=== PATIENT | male | born 1985 | race Caucasian/White ===

== ENCOUNTER 2019-11-18 15:54 | Emergency (ER) | payer BC, SELFPAY ==
[2019-11-18 16:24] VITALS: BP 150/90; PULSE 96; RESP 18; TEMP 36.9; O2SAT 100; BMI 41.5
--- NOTE | 2019-11-18 16:33 | CT_ITS ---
Procedure: CT ABDOMEN PELVIS WO CON Patient Age:33Y CLINICAL INDICATION: ABD PAIN, N/D No oral nor COMPARISON: No exams were available for comparison TECHNIQUE: No oral nor IV contrast utilized Axial images obtained with sagittal and coronal reformats. All CT scans at the facility use one or more dose reduction, viz: automated exposure control, ma/kV adjustment per patient size (including targeted exams where dose is matched to indication, i.e. head), or iterative reconstruction technique. FINDINGS: Lower thorax: No acute finding. 11 mm calcified granuloma left lung base. Associated calcified left hilar node cluster spanning 2 cm inferior left aliza ABDOMEN: The the lack of oral and IV contrast decrease sensitivity. Liver: Mild diffuse fatty changes of liver but no focal lesions evident on this noncontrast study . No biliary ductal dilatation. Common duct appears normal Gallbladder: Upper normal sized on 9.6 cm in length no radio opaque stones. Suspect there is sludge and debris. If nausea persist consider gallbladder ultrasound follow-up. Pancreas: . No prominent findings but slight wispy appearance inferior pancreas of I doubt of significance but it may be worth checking amylase particularly of upper abdominal symptoms.. Spleen: unremarkable Adrenals: unremarkable Kidneys/ureters: unremarkable no urinary tract calculi nor obstruction PELVIS: Reproductive: unremarkable modest sized prostate Bladder: Upper normal wall thickness urinary bladder.. Consider correlation with urinalysis if any symptoms here.. No obvious stones or masses. Appendix: Unremarkable. No distention or periappendiceal phlegmonous change. GI tract ========= Stomach satisfactory. Moderate food and fluid within stomach. Small bowel. Unremarkable but no dilatation no obstruction.. Terminal ileum unremarkable. Appendix. Normal. Well visualized. The Large bowel. Air-fluid levels with of liquid stool throughout the right colon. Nonspecific could reflect developing diarrhea possibly. A number minimal stool at the rectosigmoid and left colon. At the rectosigmoid junction there is a area of narrowing and upper normal wall thickness axial image 114 -115. Suspect more likely reflect peristalsis with lack of distension at this segment-most likely. However if there should be heme-positive stools or or persistent GI symptoms want to consider colonoscopy to further evaluate. Peritoneum: No abnormal fluid collections. No obvious inflammatory changes. No free air. Lymph nodes: . there are slight increased number of small scattered mesenteric lymph nodes. Nonspecific but can be seen with some underlying inflammation the. No significant sophia enlargement nor adenopathy elsewhere to raise concern otherwise Vasculature: No evidence of abdominal aortic aneurysm... Bones: No acute fracture IMPRESSION: No prominent findings.. Minimal liquid stool right colon could reflect developing diarrhea and enteritis No bowel dilatation or obstruction.No wall thickening . Appendix normal Other minor observations: Question subtle wispy appearance just inferior to head of pancreas. Likely normal but you may want to check amylase. The Scattered very small mesenteric lymph nodes-nonspecific. No prominent nodes or adenopathy Segment of upper normal wall thickness at rectosigmoid junction most likely reflects an area of peristalsis with lack of distension. However if blood in stool consider further evaluation Gallbladder: No discrete stones by CT. Would question some minimal sludge debris on CT. Fatty changes liver. Dictated by: Denis Bond MD 11/18/2019 17:46 Electronically signed
[2019-11-18 17:10] LABS: Appearance,Urine CLEAR (Clear); Bilirubin,Urine Negative (Negative); Blood, Urine 1+ (Negative); Color,Urine YELLOW (Yellow); Glucose,Urine (UA) Negative (Negative); Ketones,Urine Negative (Negative); Leukocyte Esterase,Urine Negative (Negative); Microscopic, Urine URINE MICROSCOPIC (MICROSCOPIC); Nitrate,Urine Negative (Negative); PH,Urine 5.5 (5.0-8.5); Protein,Urine Negative (Negative); Specific Gravity, Urine >= 1.030 (1.005-1.030)
[2019-11-18 17:35] LABS: Squamous Epithelial Cell,Urine Occasional #/hpf (0-5)
--- NOTE | 2019-11-18 18:19 | HMH.EDABDPAI ---
ED Disposition Clinical Impression: Constipation, Abdominal pain Disposition: Home, Self-Care Condition on Discharge: Good Instructions: DI for Acute Abdomen Additional Instructions: Please follow-up with your primary care for further management. Referrals: Provider,Referral, [Primary Care Provider] - - Critical Care Critical Care Time: No Attestation: On 11/18/19, the high probability of a clinically significant, sudden or life threatening deterioration of the following system(s) required my full and direct attention, intervention and personal management. The time I documented below is in addition to time spent performing reported procedures but includes the following listed in this critical care notation. Medical Decision Making - Medical Records Medical records reviewed: Yes: I reviewed the patient's medical records. - Candido Inquiry Pt receiving controlled substance: No Vital Signs: 11/18/19 16:24 Temperature 98.4 F Temperature Source Oral Pulse Rate [Left Radial] 96 H Respiratory Rate 18 Blood Pressure [Left Arm] 150/90 H Blood Pressure Mean [Left Arm] 110 Blood Pressure Source [Left Arm] Automatic Cuff Blood Pressure Position [Left Arm] Sitting 02 Sat by Pulse Oximetry 100 Oxygen Delivery Method Room Air - Lab Data Lab results reviewed: Yes: I reviewed the patient's lab results. Lab Results 11/18/19 16:24: Urine Color Yellow, Urine Appearance Clear, Urine pH 5.5, Ur Specific [place] >= 1.030, Urine Protein Negative, Urine Glucose (UA) Negative, Urine Ketones Negative, Urine Blood 1+, Urine Nitrate Negative, Urine Bilirubin Negative, Urine Urobilinogen 1.0, Ur Leukocyte Esterase Negative, Urine RBC 3-5, Urine WBC None, Ur Squamous Epith Cells Occasional, Urine Bacteria None - CT Data CT Scan: Abdomen, Pelvis Time Received: 16:[address] Reviewed: Yes: I have viewed the radiologist's interpretation Preliminary Findings: Normal/NAD Abdominal Pain HPI - General Chief Complaint: Abdominal Pain Stated Complaint: V&D. Abd pain Time Seen by Provider: 11/18/19 18:19 Mode of Arrival: Ambulatory Source of Information: Patient Limitations: No Limitations Description of Symptoms (Recalled from ER Triage Doc. by RN): PT C/O MID/UPPER ABD PAIN SINCE YESTERDAY ALONG WITH N/D. PT DENIES VOMITING, DIFFICULTY/PAINFUL URINATION. - History of Present Illness HPI narrative: 33-year-old gentleman comes in complaining of some epigastric pain radiating to the left upper quadrant. He states the pain started yesterday around noon after a meal. He describes the pain almost like a burning sensation/crampy sensation. Patient denies any nausea or vomiting. Patient denies any recent fever shakes or chills. Patient does rate his pain 4 out of 10 and describes drinking warm fluids alleviates the pain. Otherwise no other complaints. - Related Data Previous Rx's Medication Instructions Recorded Azithromycin [Z-Jose Ramon 250mg Tab*] 250 mg PO UD DOSE PK #6 tab 07/16/19 Brompheniramine/Pseudoephed/Dm 5 ml PO Q6HP PRN #240 syrup 07/16/19 [Bromfed Dm Cough Syrup] predniSONE [Prednisone 20mg 20 mg PO BID 4 Days #8 tab 07/16/19 Tab] Amoxicillin/Potassium Clav 1 tab PO Q12H 10 Days #20 tab 09/30/19 [Augmentin 875-125 Tablet] predniSONE [Deltasone 10mg tablet] 10 mg PO BID 3 Days #6 tab 09/30/19 Allergies Allergy/AdvReac Type Severity Reaction Status Date / Time No Known Allergies Allergy Verified 07/16/19 18:52 [facility] History - Hepatitis A Screen Drug use history?: No High risk sexual behaviors?: No History of sexually transmitted infection?: No Currently employed?: No Childcare worker?: No Do you have indoor plumbing?: Yes Do you have electricity?: Yes Attestation statement:: This patient has been screened for Hepatitis A risk factors. I have reviewed the patient's past medical history: Yes Medical History: Denies:: Diabetes Mellitus Type 1, Diabetes Mellitus Type 2 - Social H
[2019-11-18 18:28] VITALS: BP 131/86; PULSE 87; RESP 18; TEMP 36.8; O2SAT 98
== END 2019-11-18 18:30 | disposition home or self-care (01) ==
PROVIDERS: Emergency Provider Family Medicine
DX: K59.00 Constipation, unspecified (principal); R10.12 Left upper quadrant pain; Z79.899 Other long term (current) drug therapy
CPT/HCPCS: 74176; 81001; 99282

== ENCOUNTER → 2020-01-31 09:27 | Outpatient (CLI) | payer OTHER, BC, SELFPAY ==
--- NOTE | 2020-01-31 09:29 | XR_ITS ---
PROCEDURE: XR FOOT WT BEARING LT 3V CLINICAL INDICATION: pain COMPARISON: XR ANKLE WT BEARING LT MIN 3V from 01/31/2020 FINDINGS: No fracture or dislocation. No lytic or blastic change. There is normal mineralization. The joint spaces are well-preserved. No significant degenerative/arthritic changes. No erosive changes evident. Other findings:None. IMPRESSION: No acute findings. Dictated by: Carl Nails MD 01/31/2020 15:44 Electronically signed by Carl Nails MD in [place] 01/31/2020 15:44
--- NOTE | 2020-01-31 09:29 | XR_ITS ---
PROCEDURE: XR ANKLE WT BEARING RT MIN 3V CLINICAL INDICATION: pain COMPARISON: XR FOOT WT BEARING RT 3V from 01/31/2020 FINDINGS: No fracture or dislocation. No lytic or blastic change. There is normal mineralization. The joint spaces are well-preserved. No significant degenerative/arthritic changes. No erosive changes evident. Other findings:None. IMPRESSION: No acute findings. Dictated by: Carl Nails MD 01/31/2020 15:43 Electronically signed by Carl Nails MD in [place] 01/31/2020 15:43
== END ==
PROVIDERS: Visit Provider Podiatrist
DX: M25.572 Pain in left ankle and joints of left foot (principal); M25.571 Pain in right ankle and joints of right foot
CPT/HCPCS: 73610; 73630

== ENCOUNTER → 2020-02-19 13:10 | Outpatient (CLI) | payer OTHER, BC, SELFPAY ==
[2020-02-19 13:48] LABS: Basophils # 0.1 K/mm3 (0-0.2); Eosinophils # 0.2 K/mm3 (0.0-0.4); Hemoglobin 15.1 g/dL (14.1-18.0); Lymphocytes # 1.8 K/mm3 (0.7-4.5); Lymphocytes % 27.9 % (10-50); Mean Corpuscular HGB Conc 34.3 g/dL (31.8-35.4); Mean Corpuscular Hemoglobin 28.7 pg (27.0-31.2); Mean Corpuscular Volume 83.6 fl (80-94); Mean Platelet Volume 7.3 fl (7.4-10.4); Monocytes # 0.3 K/mm3 (0.1-1.0); Monocytes % 4.3 % (1.7-9.3); Neutrophils # 4.2 K/mm3 (1.8-7.8); Neutrophils % 63.8 % (37.0-80.0); Platelet Count 207 K/mm3 (142-424); Red Blood Count 5.26 M/mm3 (4.60-6.20); White Blood Count 6.6 K/mm3 (4.8-10.8)
[2020-02-19 14:17] LABS: Alanine Aminotransferase 45 U/L (12-78); Albumin Level 4.3 g/dl (3.5-5.0); Albumin/Globulin Ratio 1.7 (1.1-1.8); Alkaline Phosphatase 59 U/L (38-126); Anion Gap 11.5 mEq/L (5-15); Aspartate Amino Transferase 28 U/L (17-59); Bilirubin,Total 0.5 mg/dl (0.2-1.3); Blood Urea Nitrogen 16 mg/dl (9-20); Carbon Dioxide 29 mmol/L (22.0-30.0); Chloride 104 mmol/L (98-107); Estimated Glomerular Filt Rate 77 ml/min (>60); GFR (African American) 93 ML/MIN (>60); Globulin 2.6 g/dL (1.3-3.2); Glucose 97 mg/dl (74-100); Potassium 4.5 mmoL/L (3.5-5.1); Sodium 140 mmol/L (136-145); Total Protein,Serum 6.9 g/dl (6.3-8.2)
[2020-02-19 14:46] LABS: Thyroid Stimulating Hormone 0.73 uIU/mL (0.465-4.68)
[2020-02-20 13:32] LABS: Vitamin B12 348 pg/mL (232-1245)
[2020-02-21 09:39] LABS: Folate 9.9 ng/mL (>3.0)
[2020-02-26 05:38] LABS: 1,25 Dihydroxy Vitamin D 49 pg/mL (.); 1,25-Dihydroxy, Vitamin D-2 <10 pg/mL (.); 1,25-Dihydroxy, Vitamin D-3 49 pg/mL (.)
[2020-04-03 10:34] LABS: Cotinine 174.9; Nicotine 10.8
== END ==
PROVIDERS: Visit Provider Podiatrist
DX: M25.471 Effusion, right ankle (principal); M25.571 Pain in right ankle and joints of right foot; S99.911D Unspecified injury of right ankle, subsequent encounter
CPT/HCPCS: 36415; 80053; 80323; 82607; 82652; 82746; 84443; 85025

== ENCOUNTER → 2020-02-21 09:39 | Outpatient (CLI) | payer OTHER, BC, SELFPAY ==
--- NOTE | 2020-02-21 10:08 | MR_ITS ---
PROCEDURE: MR ANKLE RT WO/W CON CLINICAL INDICATION: evaluate for right tarsal coalition ATFL sprain, tarsal coalition, posterior tibial tendon dysfunction Trion and heard a pop. Lateral sided ankle pain. Swelling entire ankle. No injury. Prior X-Ray 01-31-20 COMPARISON: XR FOOT WT BEARING RT 3V from 01/31/2020 TECHNIQUE: Routine multiplanar multi echo sequences are performed without and with gadolinium enhancement. FINDINGS: No bone marrow edema apparent. No obvious fracture or dislocation. The inferior aspect of the tibiofibular syndesmosis and tibiofibular ligaments appear intact. There is increased T2 signal with thinning of the ATFL suggesting sprain or partial tear. The PT FL appears intact. The fibers of the deltoid ligament are sparse which may be due to sprain or partial tear. No evidence of tarsal coalition. There is increased T2 signal involving the peroneus brevis on the axial post enhanced images. This is at the level of the anterior aspect of the calcaneus and could represent a partial split tear or an area tendinopathy/tendinosis. This is best demonstrated on series 14 image twenty through 23. A complete tear is not felt to be present. The peroneus longus, Achilles tendon, posterior tibialis, flexor hallucis longus and flexor digitorum longus tendons appear intact as do the anterior extensor tendons. No abnormal fluid collections. IMPRESSION: 1. Thinning of the ATFL with increased T2 signal suggesting sprain or partial tear 2. Incomplete split tear versus tendinopathy/tendinosis of the peroneus brevis tendon 3. No obvious tarsal coalition. Dictated by: Carl Nails MD 02/23/2020 09:45 Electronically signed by Carl Nails MD in [place] 02/23/2020 09:45
== END ==
PROVIDERS: Visit Provider Podiatrist
DX: M25.471 Effusion, right ankle (principal); S93.401A Sprain of unspecified ligament of right ankle, initial encounter
CPT/HCPCS: 73723; A9576

== ENCOUNTER → 2020-05-05 13:00 | Outpatient (CLI) | payer OTHER, SELFPAY ==
--- NOTE | 2020-05-05 13:30 | ECG_ITS ---
APPROVED REPORT Exam: Resting ECG HR:64 bpm ECG Measurements Heart Rate [address] 172 P 46 QRSd 100 QRS -19 QT 406 T 38 QTc 418 Conclusion Normal sinus rhythm with sinus arrhythmia Normal ECG Electronically signed by : Addy Perla, 05/06/2020 06:40:30
[2020-05-05 14:01] LABS: Basophils % 0.6 % (0.1-2.0); Eosinophils # 0.2 K/mm3 (0.0-0.4); Eosinophils % 3.3 % (0.1-12.0); Hematocrit 45.9 % (42.0-52.0); Hemoglobin 15.2 g/dL (14.1-18.0); Lymphocytes % 28.4 % (10-50); Mean Corpuscular HGB Conc 33.2 g/dL (31.8-35.4); Mean Corpuscular Hemoglobin 28.3 pg (27.0-31.2); Mean Corpuscular Volume 85.2 fl (80-94); Mean Platelet Volume 7.5 fl (7.4-10.4); Monocytes # 0.5 K/mm3 (0.1-1.0); Monocytes % 7.1 % (1.7-9.3); Neutrophils # 4.2 K/mm3 (1.8-7.8); Neutrophils % 60.7 % (37.0-80.0); Platelet Count 232 K/mm3 (142-424); Red Blood Count 5.39 M/mm3 (4.60-6.20); Red Cell Distribution Width 13.8 % (11.5-17.5)
[2020-05-05 14:39] LABS: Alanine Aminotransferase 49 U/L (12-78); Albumin Level 4.6 g/dl (3.5-5.0); Albumin/Globulin Ratio 1.7 (1.1-1.8); Alkaline Phosphatase 65 U/L (38-126); Anion Gap 13.6 mEq/L (5-15); Aspartate Amino Transferase 34 U/L (17-59); Bilirubin,Total 0.7 mg/dl (0.2-1.3); Blood Urea Nitrogen 19 mg/dl (9-20); Calcium 9.6 mg/dl (8.4-10.2); Carbon Dioxide 28 mmol/L (22.0-30.0); Chloride 104 mmol/L (98-107); Estimated Glomerular Filt Rate 86 ml/min (>60); GFR (African American) 103 ML/MIN (>60); Globulin 2.7 g/dL (1.3-3.2); Glucose 97 mg/dl (74-100); Potassium 4.6 mmoL/L (3.5-5.1); Sodium 141 mmol/L (136-145); Total Protein,Serum 7.3 g/dl (6.3-8.2)
[2020-05-05 16:38] LABS: Coronavirus 19 IgG Antibody Negative (Negative); Coronavirus 19 IgM Antibody Negative (Negative)
== END ==
PROVIDERS: Visit Provider Podiatrist
DX: Z01.89 Encounter for other specified special examinations (principal); S93.491D Sprain of other ligament of right ankle, subsequent encounter; S96.911D Strain of unspecified muscle and tendon at ankle and foot level, right foot, subsequent encounter; S86.311D Strain of muscle(s) and tendon(s) of peroneal muscle group at lower leg level, right leg, subsequent encounter
CPT/HCPCS: 36415; 80053; 85025; 86328; 93005

== ENCOUNTER 2020-05-07 06:14 | Day surgery (SDC) | payer OTHER, SELFPAY ==
[2020-05-05 15:38] VITALS: BMI 41.5
[2020-05-07] VITALS (14 sets, daily range): BP systolic 111–177; BP diastolic 66–96; PULSE 66–91; RESP 15–24; TEMP 36.1–43; O2SAT 90–100
--- NOTE | 2020-05-07 07:03 | HMH.OPNOTE ---
Date of procedure: 05/07/20 Pre-op Diagnosis:: 1. Right peroneal tendon tear x2 (brevis, longus) 2. Right ankle synovitis 3. Right ankle sprain Post-op Diagnosis:: Same Procedure performed:: 1. Right peroneal tendon debridement and repair x2 (brevis, longus) 2. Right ankle synovectomy 3. Application of amniotic tissue graft 4. Application of posterior splint Surgeon:: Chen Pearce DPM MANAGER OF APPLICATION DEVELOPMENT:: Randy Urrutia Anesthesia: GETA Estimated blood loss (mL): 50 Clinical Note:: Patient suffered right ankle injury after stepping wrong out of an ambulance over 2 months ago. Patient has been treating conservatively with modification of activity, RICE protocol, immobilization, NSAID, off work and continues to have pain and symptoms. MRI right ankle 02/21/20 reviewed and discussed with the patient. We discussed continued conservative versus surgical treatment. Indications: X-rays 3 views weightbearing bilateral foot and ankle taken 01/31/2020, (-) for acute fracture or dislocation. Soft tissue swelling noted to right foot and ankle. 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 Patient has a history of an ankle fracture at 10 years old with foot pain since then. Indications: Modification of shoe gear, modification of activity, [id number] bracing, immobilization in boot, ice, elevation, NSAIDs, stretching. Patient unable to tolerate formal physical therapy and unable to work secondary to worsening pain rated 10/10. He is off work and continues to have symptoms limiting activities of daily life and working. After a long discussion with the patient in regards to the conservative versus surgical treatment for the tendon tear/deformity, the patient has elected to proceed with surgery because they have failed conservative treatment and continue to have pain and worsening symptoms affecting daily activities. Workers comp did not approve surgery for next week. Given some of the conditions are pre-existing they have approved the acute peroneal tendon repair only. I explained this to the patient who understands any remaining surgery would not be covered by Worker's Comp. and we will need to stage other procedures in a different surgery. Patient verbalized understanding. The patient has been instructed on the planned procedure, all risk versus benefits of the procedure discussed. These include but are not limited to: bleeding, infection, nerve and blood vessel damage, need for further surgery, delay in healing of soft tissue or bone, tendon re-rupture, failure of bones to heal, non-union, mal-union, failure of the implant, prolonged pain and recovery, CRPS/RSD, DVT and anesthetic complications. No guarantees were given. All questions fully answered. The patient verbalized understanding and agreed to proceed with surgery. Written consent was obtained. Necessary labs and pre-op testing ordered: CBC, CMP, EKG, covid. Contacted Dr. Roberto's office to set him up as a new patient for evaluation of HTN. Medical clearance per Ranjan Martinez on 05/06/20. Patient has crutches. Recommend RKS. e-Rx for Percocet 7.5mg # 42, Zofran 4mg # 30, Motrin 800mg #60 given. Operative findings:: Right ankle had fibrotic scar tissue and synovitis noted. The area was a low-lying peroneal brevis muscle belly with a split tear of the brevis tendon. There was flattening of the brevis inferior to the distal fibula lateral malleolus. The peroneal longus had synovitis and a longitudinal tear about 3 cm long. Negative anterior ankle drawer. Due to the patient's varicose veins, venous tourniquet and high blood pressure this case took 30 minutes longer than normal. The patient had very large body habitus with subcutaneous tissue which also contributed to slower dissection. The flatfoot deformity and chronic instability feelings w
--- NOTE | 2020-05-07 08:04 | P.PN_ITS ---
[facility] Anesthesia Checklist - Patient Identification Patient Identification: Arm Band, Verbal (Name & ) - Structural Data Admitted From: Home Planned Operative Procedure/s: Right foot peroneal tendon repair Consent for Planned Operative Procedure(s) Verified: Yes Verified Documents: Surgical Consent, History and Physical - NPO Status Verified Time NPO: 21:00 - Chart Verification Results Verified: CBC, BMP - Additional verifications Anesthesia Reactions: No Hx Blood Transfusions: No Blood Transfusion Reaction: No - Airway Assessment C-Spine Mobility Assessed: Yes (MP 3, Campos, thick neck, full neck ROM) TMJ Mobility Assessed: Yes Dentition: Good Dentition - Neurological Assessment Level of Consciousness: Awake, Alert, Appropriate, Follows Commands Hx Seizures: No Numbness or tingling in extremities: No - Anesthesia Plan Anesthesia Risk discussed: Yes Anesthesia Plan: Verified ASA Class: III Anesthesia Type: General w/block [facility] History I have reviewed the patient's past medical history: Yes Medical History: Reports:: Hypertension Denies:: Cancer, Diabetes Mellitus Type 1, Diabetes Mellitus Type 2, Internal Pacemaker, MRSA, Seizures *Have you ever received a pneumonia vaccine?: No *Have you received a flu vaccine this season?: No Other Medical History: Denies: Blood Transfusion Reaction Comment:: morbid obesity Anesthesia experience/problems:: No prior complications Other Surgeries: Yes: No Previous Surgery, Other. No: Pacemaker Amputation: No Fractures: No - *Social History Last grade of school completed: High school graduate Smoking Status: Never smoker Tobacco Type: smokeless tobacco # Packs/Day (cigarettes): 0 Alcohol Intake: never Substance Use Type: denies use *Occupational Status:: employed Housing: house Household Members: spouse *Travel in the last 8 weeks: None Family Hx:: Cancer, Stroke, Heart Attack
--- NOTE | 2020-05-07 09:13 | P.PN_ITS ---
[facility] Anesthesia Record Part I Intake, IV Amount: 1,000 Estimated blood loss (mL): 20 Urine output (mL): 0 Blood Pressure: 111/74 SaO2: 92 Pulse Rate: 73 Respiratory Rate: 16 Temperature: 98.6 F Patient is:: Drowsy, Stable Stable to PACU at:: 09:10
--- NOTE | 2020-05-07 09:15 | XR_ITS ---
PROCEDURE: XR ANKLE RT MIN 3V CLINICAL INDICATION: Post op R ankle COMPARISON: CR XR ANKLE WT BEARING RT MIN 3V from 01/31/2020 FINDINGS: Posterior splint is in place. No fracture or dislocation. Good alignment. IMPRESSION: Posterior splint in place otherwise negative Dictated by: Carl Nails MD 05/07/2020 16:30 Carl Nails MD in [place] 05/07/2020 16:30
--- NOTE | 2020-05-07 12:56 | SUR.OPER ---
late entry: [id number]-family updated
--- NOTE | 2020-05-07 13:41 | P.PN_ITS ---
[facility] Anesthesia Record Part II Discharge Time: 09:40 Destination: Surgical Day Care (OP Surgery) PACU nurse assessment reviewed?: Yes Patient Condition:: Good Anesthesia Complications:: None Swallowing reflex intact?: Yes Cyanosis?: No Blood Pressure: 146/72 Pulse Rate: 71 Temperature: 98.4 F Mental Status: Alert & Oriented Pain level:: 0 Nausea and/or vomitting:: None Intake, IV Amount: 0 (NM)
== END 2020-05-07 10:45 | disposition home or self-care (01) ==
LOC: OR 06:15
PROVIDERS: PCP Emergency Medicine; Visit Provider Podiatrist
PROC: (CPT 27625; principal; 2020-05-07 07:30)
DX: S93.491A Sprain of other ligament of right ankle, initial encounter (principal); S86.311A Strain of muscle(s) and tendon(s) of peroneal muscle group at lower leg level, right leg, initial encounter; S96.811A Strain of other specified muscles and tendons at ankle and foot level, right foot, initial encounter; X58.XXXA Exposure to other specified factors, initial encounter; Y92.89 Other specified places as the place of occurrence of the external cause
CPT/HCPCS: 27625; 27658; C5271; 73610; 96374; C1762; J2405; Q4211

== ENCOUNTER 2020-07-31 09:00 | Outpatient (RCR) | payer OTHER, SELFPAY ==
--- NOTE | 2020-07-08 15:06 | HMH.PTOPEV ---
PT Outpatient Evaluation Rehab PT Outpatient Evaluation Start: 07/08/20 14:24 Freq: Status: Active Protocol: Document 07/08/20 14:24 KIRILL (Rec: 07/08/20 15:06 KIRILL [id number]) Electronically Signed By Clemente Villegas, PT 07/08/20 14:24 Outpatient Therapy Subjective History Subjective History Pt presents s/p R ankle peroneal tendon repair on 05/07. Pt reports initial injury occured while stepping off truck at work on 01/09/20, ' felt pop, and it just didn't get better'. Pt reports very little post-op pain in R ankle currently, however, reports swelling, stiffnes, and weakness. Chief Complaint Pain,Stiff,Swelling,Weakness Symptom Type Ache,Dull Symptoms Relieved By Rest/Positioning,Ice Symptoms Aggravated By Physical Activity Prior Functional Limitations Standing,Walking,Stairs Current Functional Limitations Standing,Walking,Stairs Symptom Description Constant but Variable Level of pain today (0-10) 3 Pain scale - at its best (0-10) 3 Pain scale - at its worst (0-10) 3 Ankle/Foot Eval Gait Observation General Gait Pattern Observation Antalgic Gait,Decrease Weight Bear (R),Decrease Stride Lngth (R) Palpation Tenderness right Ankle/Foot Palpation Findings Tenderness Ankle/Foot Palpation Overall Comment 0-1/4 peroneal insertion ROM Ankle/Foot Dorsiflexion w/Knee Extended 0 Active Range Motion (degrees) Ankle/Foot Plantar Flexion Active Range 0-40 of Motion (degrees) Ankle/Foot Eversion Active Range of 0-5 Motion (degrees) Ankle/Foot Inversion Active Range of 0-20 Motion (degrees) MMT Ankle Dorsiflexion Strength Grade 4- Good- Ankle Plantarflexion Strength Grade 4 Good Foot Eversion Strength Grade 4- Good- Foot Inversion Strength Grade 4- Good- Outpatient Therapy Assessment Impairments Problems/Impairmments Palpation Tenderness,Impaired Range of Motion,Impaired Strength,Impaired Gait Pattern ,Impaired Walking,Impaired Standing,Impaired Stair Climbing,Impaired Work Activities,Increased Edema, Lymphedema Present,Subjective C/O Pain,Impaired Self Care/ Self Management Prognosis Rehab Potential Good Clinical
== END 2020-07-31 09:05 | disposition home or self-care (01) ==
LOC: PT 09:00
PROVIDERS: Visit Provider Podiatrist
DX: M25.571 Pain in right ankle and joints of right foot; M25.471 Effusion, right ankle; S93.401A Sprain of unspecified ligament of right ankle, initial encounter
CPT/HCPCS: 97010; 97014; 97016; 97110; 97112; 97140; 97163; 97760; G0283

== ENCOUNTER 2020-08-09 14:38 | Emergency (ER) | payer BC, SELFPAY ==
[2020-08-09 15:10] VITALS: BP 142/92; PULSE 84; RESP 19; TEMP 37.1; O2SAT 99; BMI 38.2
--- NOTE | 2020-08-09 15:45 | HMH.EDUTC ---
[facility] [place]ression: Encounter for laboratory testing for COVID-19 virus Disposition: Home, Self-Care Condition on Discharge: Good Instructions: DI for COVID-19 (Suspected or Confirmed ), COVID-19: Testing and Tracing, Preventing the Spread of Coronavirus Discharge Instructions Additional Instructions: *Monitor Temp, Over the counter Motrin or Tylenol as directed/as needed Tylenol every 4 hours and Motrin every 6 hours (as long as your family doctor has told you that you can take it) for fever or pain. and straight to ER if unable to lower temp less than 101.0 after medication given *Warm salt water gargles may help to soothe the throat *Throat Lozenges *Warm fluids like tea with honey may help to soothe the throat *Sleep elevated *Humidifier/Vaporizer Follow up IMMEDIATELY for new or worsening symptoms or no Noticeable improvement over the next 48-72 hours. 911 for difficulty breathing or swallowing You were tested for today for COVID19 your test result should be back in the next 24-48 hours, you may call to the [facility] to see if your test results are back in the next 48 hours [phone] [facility] hours are 9am-9pm You was given a handout with instructions for Self Quarantine and Self isolation for while you wait on test results and what to do if they are positive If you are positive the Health Dept will be contacting you also Referrals: Jaya Roberto MD [Primary Care Provider] - As needed Forms: Work/School Release Time of Disposition: 15:48 Medical Decision Making - Candido Inquiry Pt receiving controlled substance: No Candido was queried for this patient: No Vital Signs: 08/09/20 15:10 Temperature 98.7 F Temperature Source Oral Pulse Rate [Right Brachial] 84 Respiratory Rate 19 Blood Pressure [Right Arm] 142/92 H Blood Pressure Mean [Right Arm] 108 Blood Pressure Source [Right Arm] Automatic Cuff Blood Pressure Position [Right Arm] Sitting 02 Sat by Pulse Oximetry 99 Oxygen Delivery Method Room Air Orders (Tests/Meds): ORDERS Category Date Time Status Covid-19 Nasal PCR ([facility]) Routine Lab 08/09/20 15:10 [place] [facility] [place] - General Stated complaint: Covid test, cough, diarrhea Time Seen by Provider: 08/09/20 15:45 Mode of Arrival: Ambulatory Source of Information: Patient Limitations: No Limitations Description of Symptoms (Recalled from Triage Doc. by RN): PATIENT C/O SOA, COUGH, AND NO TASTE/SMELL X 3 DAYS HEENT Symptoms (Recalled from RN notes): No Resp Symptoms (Recalled from RN notes): Yes Skin Symptoms (Recalled from RN notes): No MS Symptoms (Recalled from RN notes): No Functional Status (Recalled from RN notes): WNL - History of Present Illness Provider Complaint: Patient states that he has been having body aches, cough, loss of taste and smell for 3 days State that earlier today he was coughing and felt a little short of breath States that he was worried that he may have COVID so he came in to get tested - Related Data Home Medications Medication Instructions Recorded Confirmed lisinopriL [Prinivil 10mg Tablet] 10 mg PO DAILY 05/05/20 08/04/20 Allergies Allergy/AdvReac Type Severity Reaction Status Date / Time Penicillins Allergy Verified 08/04/20 13:15 - Worker's Comp Is this a Worker's Comp case?: No [facility] History - Hepatitis A Screen Drug use history?: No High risk sexual behaviors?: No History of sexually transmitted infection?: No Currently employed?: No Childcare worker?: No Do you have indoor plumbing?: Yes Do you have electricity?: Yes Attestation statement:: This patient has been screened for Hepatitis A risk factors. I have reviewed the patient's past medical history: Yes Medical History: Reports:: Hypertension Denies:: Cancer, Diabetes Mellitus Type 1, Diabetes Mellitus Type 2, Internal Pacemaker, MRSA, Seizures Other Medical History: Denies: Blood Transfusion Reaction Comment: morbid obesity Other Surgeries: Yes: No P
[2020-08-09 15:49] VITALS: BP 142/92; PULSE 84; RESP 19; TEMP 37.1; O2SAT 99
--- NOTE | 2020-08-10 11:00 | PC.NURSE ---
PT NOTIFIED OF POSITIVE COVID RESULT
== END 2020-08-09 15:50 | disposition home or self-care (01) ==
PROVIDERS: Emergency Provider Nurse Practitioner; PCP Emergency Medicine
DX: U07.1 COVID-19 (principal); I10 Essential (primary) hypertension; Z79.899 Other long term (current) drug therapy; Z88.0 Allergy status to penicillin
CPT/HCPCS: 99202; G0463; U0003

== ENCOUNTER 2020-09-22 09:05 | Emergency (ER) | payer BC, SELFPAY ==
[2020-09-22 09:15] VITALS: BP 147/91; PULSE 78; RESP 20; TEMP 37; O2SAT 100; BMI 41.5
--- NOTE | 2020-09-22 09:39 | HMH.EDUTC ---
[facility] [place] Disposition Clinical Impression: Exposure to COVID-19 virus Disposition: Home, Self-Care Condition on Discharge: Good Instructions: Preventing the Spread of Coronavirus Discharge Instructions Additional Instructions: Drink plenty of fluids. Take tylenol for pain or fever. Return if you begin to have difficulty breathing. Follow up with your regular doctor. GO TO THE ER FOR ANY WORSENING SYMPTOMS Referrals: PCP,No [Primary Care Provider] - Forms: Work/School Release Time of Disposition: 09:40 Medical Decision Making - Medical Records Medical records reviewed: No: I reviewed the patient's medical records. - Candido Inquiry Pt receiving controlled substance: No Vital Signs: 09/22/20 09:15 09/22/20 09:48 Temperature 98.6 F 98.6 F Temperature Source Oral Pulse Rate 78 Pulse Rate [Right Brachial] 78 Respiratory Rate 20 20 Blood Pressure 147/91 H Blood Pressure [Right Arm] 147/91 H Blood Pressure Mean [Right Arm] 109 Blood Pressure Source [Right Arm] Automatic Cuff Blood Pressure Position [Right Arm] Sitting 02 Sat by Pulse Oximetry 100 Oxygen Delivery Method Room Air Orders (Tests/Meds): ORDERS Category Date Time Status Covid-19 Nasal PCR ([facility]) Routine Lab 09/22/20 09:20 Received [facility] [place] HPI - General Stated complaint: covid test Time Seen by Provider: 09/22/20 09:39 Mode of Arrival: Ambulatory Source of Information: Patient Limitations: No Limitations Description of Symptoms (Recalled from Triage Doc. by RN): COVID TEST FOR WORK. DENIES SYMPTOMS HEENT Symptoms (Recalled from RN notes): No Resp Symptoms (Recalled from RN notes): No Skin Symptoms (Recalled from RN notes): No MS Symptoms (Recalled from RN notes): No Functional Status (Recalled from RN notes): WNL - History of Present Illness Provider Complaint: She has been exposed to covid but she has no symptoms yet. - Related Data Home Medications Medication Instructions Recorded Confirmed lisinopriL [Prinivil 10mg Tablet] 10 mg PO DAILY 05/05/20 08/04/20 Allergies Allergy/AdvReac Type Severity Reaction Status Date / Time Penicillins Allergy Verified 08/04/20 13:15 - Worker's Comp Is this a Worker's Comp case?: No [facility] History - Hepatitis A Screen Drug use history?: No High risk sexual behaviors?: No History of sexually transmitted infection?: No Currently employed?: No Childcare worker?: No Do you have indoor plumbing?: Yes Do you have electricity?: Yes Attestation statement:: This patient has been screened for Hepatitis A risk factors. I have reviewed the patient's past medical history: Yes Medical History: Reports:: Hypertension Denies:: Cancer, Diabetes Mellitus Type 1, Diabetes Mellitus Type 2, Internal Pacemaker, MRSA, Seizures Other Medical History: Denies: Blood Transfusion Reaction Comment: morbid obesity Other Surgeries: Yes: No Previous Surgery, Other. No: Pacemaker Amputation: No Fractures: No Comment: cyst removed from lip, vein removed from left leg - Social History Smoking Status: Never smoker Tobacco Type: smokeless tobacco # Packs/Day (cigarettes): 0 Alcohol Intake: never Substance Use Type: denies use Occupational Status: other Housing: house Household Members: spouse Family Hx:: Cancer, Stroke, Heart Attack ROS Obtained: Yes All systems reviewed & no additional complaints - Constitutional Constitutional: Reports system reviewed and no additional complaints, except as docu - Eyes Eyes: Reports system reviewed and no additional complaints, except as docu - ENT Ears, Nose, Mouth, and Throat: Reports system reviewed and no additional complaints, except as docu - Cardiovascular Cardiovascular: Reports system reviewed and no additional complaints, except as docu - Respiratory Respiratory: Reports system reviewed and no additional complaints, except as docu Physical Exam - General General appearance: alert, in no apparent distress - Hea
[2020-09-22 09:48] VITALS: BP 147/91; PULSE 78; RESP 20; TEMP 37; O2SAT 100
--- NOTE | 2020-09-22 19:10 | PC.NURSE ---
patient notified of neg covid results
== END 2020-09-22 09:50 | disposition home or self-care (01) ==
PROVIDERS: Emergency Provider Nurse Practitioner Family
DX: Z20.822 Contact with and (suspected) exposure to COVID-19 (principal); I10 Essential (primary) hypertension; Z88.0 Allergy status to penicillin
CPT/HCPCS: 99202; G0463; U0003

== ENCOUNTER 2021-03-26 11:10 | Emergency (ER) | payer BC, SELFPAY ==
[2021-03-26 12:41] VITALS: BP 144/90; PULSE 70; RESP 18; TEMP 36.8; O2SAT 98; BMI 43.7
--- NOTE | 2021-03-26 12:54 | HMH.EDUTC ---
[place] Disposition Clinical Impression: Exposure to COVID-19 virus Disposition: Home, Self-Care Condition on Discharge: Good Instructions: DI for COVID-19 (Suspected or Confirmed ), Coronavirus Disease 2019, Preventing the Spread of Coronavirus Discharge Instructions Additional Instructions: *Monitor Temp, Over the counter Motrin or Tylenol as directed/as needed Tylenol every 4 hours and Motrin every 6 hours (as long as your family doctor has told you that you can take it) for fever or pain. and straight to ER if unable to lower temp less than 101.0 after medication given Follow up IMMEDIATELY for new or worsening symptoms or no Noticeable improvement over the next 48-72 hours. 911 for difficulty breathing or swallowing You were tested for today for COVID19 your test result should be back in the next 24-48 hours, you may call to the [facility] to see if your test results are back in the next 48 hours [phone] [facility] hours are 9am-9pm You was given a handout with instructions for Self Quarantine and Self isolation for while you wait on test results and what to do if they are positive If you are positive the Health Dept will be contacting you also Make sure to take your Vitamins Vit. C Vit D and Zinc if you can take them Referrals: Provider,Referral, MD [Primary Care Provider] - As needed Forms: Work/School Release Time of Disposition: 12:55 Medical Decision Making - Candido Inquiry Pt receiving controlled substance: No Candido was queried for this patient: No Vital Signs: 03/26/21 12:41 Temperature 98.3 F Temperature Source Oral Pulse Rate [Right] 70 Respiratory Rate 18 Blood Pressure [Right Arm] 144/90 H Blood Pressure Mean [Right Arm] 108 02 Sat by Pulse Oximetry 98 Oxygen Delivery Method Room Air Orders (Tests/Meds): ORDERS Category Date Time Status Covid-19 Nasal PCR ([facility]) Routine Lab 03/26/21 12:36 Received [place] HPI - General Stated complaint: covid test Time Seen by Provider: 03/26/21 12:54 Mode of Arrival: Family Vehicle Source of Information: Patient Limitations: No Limitations Description of Symptoms (Recalled from Triage Doc. by RN): Patient reports he is here for a COVID test. Reports he was exposed to COVID last Tuesday. Denies any symptoms. HEENT Symptoms (Recalled from RN notes): No Resp Symptoms (Recalled from RN notes): No Skin Symptoms (Recalled from RN notes): No MS Symptoms (Recalled from RN notes): No Functional Status (Recalled from RN notes): na - History of Present Illness Provider Complaint: Patient state that he was around someone last week at work that tested positive for COVID state that he is not having any symptoms but they wanted him to get tested before he came back to work - Related Data Home Medications Medication Instructions Recorded Confirmed lisinopriL [Prinivil 10mg Tablet] 10 mg PO DAILY 05/05/20 08/04/20 Allergies Allergy/AdvReac Type Severity Reaction Status Date / Time Penicillins Allergy Verified 08/04/20 13:15 - Worker's Comp Is this a Worker's Comp case?: No Is this an H Worker's Comp?: No Is this a [place] Worker's Comp?: No [facility] History - Hepatitis A Screen Drug use history?: No High risk sexual behaviors?: No History of sexually transmitted infection?: No Currently employed?: No Childcare worker?: No Do you have indoor plumbing?: Yes Do you have electricity?: Yes Attestation statement:: This patient has been screened for Hepatitis A risk factors. I have reviewed the patient's past medical history: Yes Medical History: Reports:: Hypertension Denies:: Cancer, Diabetes Mellitus Type 1, Diabetes Mellitus Type 2, Internal Pacemaker, MRSA, Seizures Other Medical History: Denies: Blood Transfusion Reaction Comment: morbid obesity Other Surgeries: Yes: No Previous Surgery, Other. No: Pacemaker Amputation: No Fractures: No Comment: cyst removed from lip, vein removed from left leg - Social History Smoking Status: Never smok
[2021-03-26 13:00] VITALS: BP 136/71; PULSE 78; RESP 18; TEMP 37; O2SAT 98
== END 2021-03-26 13:04 | disposition home or self-care (01) ==
PROVIDERS: Emergency Provider Nurse Practitioner
DX: Z20.822 Contact with and (suspected) exposure to COVID-19 (principal); I10 Essential (primary) hypertension
CPT/HCPCS: 99202; G0463; U0003

== ENCOUNTER 2021-09-09 09:07 | Outpatient (RCR) | payer BC, SELFPAY ==
--- NOTE | 2021-09-09 09:44 | HMH.PTOPEV ---
PT Outpatient Evaluation Rehab PT Outpatient Evaluation Start: 09/09/21 09:34 Freq: Status: Active Protocol: Document 09/09/21 09:34 SHERYL (Rec: 09/09/21 09:44 SHERYL [id number]) Electronically Signed By He Daniel, PT 09/09/21 09:34 Outpatient Therapy Subjective History Subjective History Patient is a 35 year old male presenting to outpatient PT with reports of LBP with LLE radicular symptoms starting approximately 4-5 weeks ago of insidious onset. No recent imaging to report. Symptoms relief noted with extension protocol indicating possible disc pathology. Comorbidities include hx of HTN and R ankle ORIF. Chief Complaint Pain,Paresthesia Symptom Type Sharp,Numbness Symptoms Relieved By Rest/Positioning Prior Functional Limitations None Current Functional Limitations Lifting,Sitting,Bending/ Stooping Symptom Description Constant but Variable Level of pain today (0-10) 6 Pain scale - at its best (0-10) 3 Pain scale - at its worst (0-10) 10 Lumbopelvic Eval Posture Thoracic Spine Posture Standing Position Increased Kyphosis Lumbar Spine Posture Standing Position Decreased Lordosis Assistive device Assistive Devices None / NA Palapation tenderness left lumbar spinal tenderness Yes: 3/4 paraspinal tenderness Yes: buttock tenderness Yes: Lumbar/Sacral Palpation Findings Tenderness Accessory Movement L3 left L4 left L5 left S1 left Range of Motion Lumbar Spine Active Flexion Range of 74 Motion (degrees) Lumbar Spine Active Extension Range of 18 Motion (degrees) Left Lumbar Spine Lateral Flexion Active 10 Range of Motion (degrees) Right Lumbar Spine Lateral Flexion 14 Active Range of Motion (degrees) Lumbar Spine ROM Limitations Soft Tissue Tightness,Pain Manual Muscle Test Bilateral Knee Extension Strength Grade 5 Normal Knee Flexion Strength Grade 5 Normal Hip Flexion Strength Grade 5 Normal Extensor Hallucis Longus Strength Grade 5 Normal Ankle Dorsiflexion Strength Grade 5 Normal Gastronemius/Soleus Strength Grade 5 Normal Altered Sensation Left LE Dermatome Level L5,S1 Comment NT Special Tests Hip Chadd (MICHAEL) Test Positive Left Hip Cheyanne Test
== END 2021-09-09 09:10 | disposition home or self-care (01) ==
LOC: PT 09:07
PROVIDERS: PCP Emergency Medicine; Visit Provider Emergency Medicine
DX: M54.50 Low back pain, unspecified (principal)
CPT/HCPCS: 97163

== ENCOUNTER 2021-10-13 19:16 | Emergency (ER) | payer BC, SELFPAY ==
[2021-10-13 20:38] VITALS: BP 131/76; PULSE 78; RESP 21; TEMP 37.4; O2SAT 99; BMI 41.5
--- NOTE | 2021-10-13 20:40 | HMH.EDUTC ---
[facility] [place] Disposition Clinical Impression: Viral syndrome, Gastroenteritis Disposition: Home, Self-Care Condition on Discharge: Good Instructions: Viral Gastroenteritis, DI for Viral Gastroenteritis -- Adult, Gastroenteritis Diet Additional Instructions: Drink plenty of fluids. Take tylenol or ibuprofen for pain or fever. Take the medications as directed. Follow up with your regular doctor. GO TO THE ER FOR ANY WORSENING SYMPTOMS Prescriptions: Ondansetron [Zofran 4mg ODT] 4 mg PO Q8HP PRN #20 tab PRN Reason: Nausea Transmission Status: Received by [facility] Referrals: Jaya Roberto MD [Primary Care Provider] - Forms: Work/School Release Time of Disposition: 21:11 Medical Decision Making - Medical Records Medical records reviewed: No: I reviewed the patient's medical records. - Candido Inquiry Pt receiving controlled substance: No Vital Signs: 10/13/21 20:38 10/13/21 21:12 Temperature 99.4 F 99.4 F Temperature Source Oral Pulse Rate 78 Pulse Rate [Left] 78 Respiratory Rate 21 21 Blood Pressure 131/76 Blood Pressure [Right Arm] 131/76 Blood Pressure Mean [Right Arm] 94 02 Sat by Pulse Oximetry 99 - Lab Data Lab results reviewed: Yes: I reviewed the patient's lab results. Lab Results 10/13/21 20:40: Influenza Type A Ag Negative, Influenza Type B Ag Negative 10/13/21 20:51: Strep Scn Rapid Clinic Negative Orders (Tests/Meds): ORDERS Category Date Time Status Full Resp Panel w/COVID ([facility]) Routine Lab 10/13/21 20:50 Received Strep Screen Confirmation Stat Micro 10/13/21 20:51 Received [facility] [place] HPI - General Stated complaint: vomiting,fever Time Seen by Provider: 10/13/21 20:40 - History of Present Illness Provider Complaint: He states that he has had n/v/d since yesterday. His vomiting has stopped. His diarrhea has slowed down. - Related Data Home Medications Medication Instructions Recorded Confirmed lisinopriL [Prinivil 10mg Tablet] 10 mg PO DAILY 05/05/20 09/18/21 Previous Rx's Medication Instructions Recorded Ondansetron [Zofran 4mg ODT] 4 mg PO Q8HP PRN #20 tab 10/13/21 Allergies Allergy/AdvReac Type Severity Reaction Status Date / Time Penicillins Allergy Verified 09/18/21 14:10 [facility] History - Hepatitis A Screen Attestation statement:: This patient has been screened for Hepatitis A risk factors. I have reviewed the patient's past medical history: Yes Medical History: Reports:: Hypertension Denies:: Cancer, Diabetes Mellitus Type 1, Diabetes Mellitus Type 2, Internal Pacemaker, MRSA, Seizures Other Medical History: Denies: Blood Transfusion Reaction Comment: morbid obesity Other Surgeries: Yes: No Previous Surgery, Other. No: Pacemaker Amputation: No Fractures: No Comment: cyst removed from lip, vein removed from left leg - Social History Smoking Status: Never smoker Tobacco Type: smokeless tobacco # Packs/Day (cigarettes): 0 Alcohol Intake: never Substance Use Type: denies use Occupational Status: other Housing: house Household Members: spouse Family Hx:: Cancer, Stroke, Heart Attack ROS Obtained: Yes All systems reviewed & no additional complaints - Constitutional Constitutional: Reports as per HPI - Eyes Eyes: Denies eye discharge - ENT Ears, Nose, Mouth, and Throat: Reports as per HPI, Denies sore throat - Cardiovascular Cardiovascular: Denies chest pain - Respiratory Respiratory: Denies chest congestion, Denies cough, Denies dyspnea, Denies stridor, Denies wheezing - Gastrointestinal Gastrointestingal: Reports: as per HPI - Genitourinary Male Genitourinary: Denies difficulty urinating, Denies urinary frequency, Denies urinary hesitancy - Musculoskeletal Musculoskeletal: Denies back pain - Integumentary/Breasts Skin/Breast: Denies rash Physical Exam - General General appearance: alert, in no apparent distress - Head Head exam: atraumatic, norm
[2021-10-13 21:01] LABS: UTC Strep Screen (Rapid) Negative (Negative)
[2021-10-13 21:01] LABS: UTC Influenza A Antigen Negative (Negative); UTC Influenza B Antigen Negative (Negative)
[2021-10-13 21:03] LABS: Adenovirus,PCR Not Detected (NotDetected); Bordetella Pertussis Not Detected (NotDetected); Chlamydophila Pneumoniae, PCR Not Detected (NotDetected); Coronavirus 19, PCR Not Detected (NotDetected); Coronavirus 229E Not Detected (NotDetected); Coronavirus NL63 Not Detected (NotDetected); Coronavirus OC43 Not Detected (NotDetected); Coronovirus HKU1,PCR Not Detected (NotDetected); Human Metapneumovirus Not Detected (NotDetected); Influenza A, PCR Not Detected (NotDetected); Influenza AH1, 2009 Not Detected (NotDetected); Influenza AH1, PCR Not Detected (NotDetected); Influenza AH3,PCR Not Detected (NotDetected); Influenza B, PCR Not Detected (NotDetected); Mycoplasma Pneumoniae, PCR Not Detected (NotDetected); Parainfluenza 1, PCR Not Detected (NotDetected); Parainfluenza 2, PCR Not Detected (NotDetected); Parainfluenza 3, PCR Not Detected (NotDetected); Parainfluenza 4, PCR Not Detected (NotDetected); Respiratory Syncytial Virus Not Detected (NotDetected); Rhinovirus/Enterovirus Not Detected (NotDetected)
[2021-10-13 21:12] VITALS: BP 131/76; PULSE 78; RESP 21; TEMP 37.4
== END 2021-10-13 21:19 | disposition home or self-care (01) ==
PROVIDERS: Emergency Provider Nurse Practitioner Family; PCP Emergency Medicine
DX: B34.9 Viral infection, unspecified (principal); I10 Essential (primary) hypertension; E66.01 Morbid (severe) obesity due to excess calories; Z20.822 Contact with and (suspected) exposure to COVID-19; F17.290 Nicotine dependence, other tobacco product, uncomplicated; Z68.41 Body mass index [BMI] 40.0-44.9, adult; Z79.899 Other long term (current) drug therapy; Z88.0 Allergy status to penicillin; Z82.49 Family history of ischemic heart disease and other diseases of the circulatory system; Z80.9 Family history of malignant neoplasm, unspecified
CPT/HCPCS: 87581; 87632; 87798; 87804; 87880; 99213; C9803; G0463; U0003; U0005

== ENCOUNTER 2022-01-30 16:53 | Emergency (ER) | payer BC, SELFPAY ==
--- NOTE | 2022-01-30 17:05 | XR_ITS ---
PROCEDURE INFORMATION: Exam: XR Chest Exam date and time: 01/30/2022 5:07 PM Age: 36 years old Clinical indication: Shortness of breath; Additional info: SOA, nonsmoker TECHNIQUE: Imaging protocol: Radiologic exam of the chest. Views: 2 views. COMPARISON: CT ABDOMEN PELVIS WO CON 11/18/2019 5:15 PM FINDINGS: Airway: Central airways are patent. Lungs: Patchy/ground-glass airspace opacities in the bilateral lung bases and left mid lung. Bilateral segmental bronchial wall thickening. Remainder of the lungs are clear. Mild prominence of the pulmonary vasculature. Calcified left hilar granulomas are of no clinical concern. Pleural spaces: No pleural effusions or pneumothorax. Heart/Mediastinum: Heart is of normal size and morphology. Upper mediastinum is unremarkable. Bones/joints: No acute skeletal abnormality or aggressive osseous lesion. IMPRESSION: Concern for bilateral basal and left mid lung atypical viral pneumonia with associated bronchitis.
[2022-01-30 17:15] VITALS: BP 139/92; PULSE 61; RESP 17; TEMP 36.8; O2SAT 99; BMI 41.5
--- NOTE | 2022-01-30 17:42 | HMH.EDUTC ---
[facility] [place] Disposition Clinical Impression: Acute bronchitis Qualifiers: Bronchitis organism: unspecified organism Qualified Code(s): J20.9 - Acute bronchitis, unspecified Disposition: Home, Self-Care Condition on Discharge: Good Instructions: Acute Bronchitis, Preventing the Spread of Coronavirus Discharge Instructions Additional Instructions: Drink plenty of fluids. Take tylenol or ibuprofen for pain or fever. Take the medications as directed. Follow up with your regular doctor. GO TO THE ER FOR ANY WORSENING SYMPTOMS Don't start the oral steroids until tomorrow, since you had the shot here today. Prescriptions: Albuterol Sulfate [Albuterol Sulfate Hfa] 2 puffs IH Q6HP PRN 30 Days #1 each PRN Reason: Shortness Of Breath Transmission Status: Received by [id number] Benzonatate [Benzonatate 100mg cap] 100 mg PO TIDP PRN #30 cap PRN Reason: Cough Transmission Status: Received by [id number] methylPREDNISolone [Medrol] 4 mg PO DIRECTED 6 Days #21 packet Transmission Status: Received by [id number] Cefdinir [Omnicef 300mg Capsule] 300 mg PO BID #20 cap Transmission Status: Received by [id number] Referrals: Jaya Roberto MD [Primary Care Provider] - Time of Disposition: 17:45 Medical Decision Making - Medical Records Medical records reviewed: No: I reviewed the patient's medical records. - Candido Inquiry Pt receiving controlled substance: No Vital Signs: 01/30/22 17:15 01/30/22 17:48 Temperature 98.2 F 98.2 F Temperature Source Oral Oral Pulse Rate 61 Pulse Rate [Left] 61 Respiratory Rate 17 17 Blood Pressure 139/92 H Blood Pressure [Right Arm] 139/92 H Blood Pressure Mean [Right Arm] 107 02 Sat by Pulse Oximetry 99 Orders (Tests/Meds): ED MEDICATIONS Discontinued Medications Generic Name Dose Route Start Last Admin Trade Name Freq PRN Reason Stop Dose Admin Ceftriaxone Sodium 1 gm 01/30/22 17:31 01/30/22 17:38 Ceftriaxone 1gm Vial IM 01/30/22 17:32 1 gm ONCE ONE Administration Lidocaine HCl 0 ml 01/30/22 17:31 01/30/22 17:39 Lidocaine 1% 5ml Pf Vial IM 01/30/22 17:32 2 ml ONCE ONE Administration Methylprednisolone Sodium Succinate 125 mg 01/30/22 17:27 01/30/22 17:39 Methylprednisolone Sod Succ 125mg Vial IM 01/30/22 17:28 125 mg ONCE ONE Administration [facility] [place] HPI - General Stated complaint: cough,SOA, covid test Time Seen by Provider: 01/30/22 17:42 Description of Symptoms (Recalled from Triage Doc. by RN): patient comes in for cough. patient states that he has had a prouctive cough for 1 week. he works outside for a living. HEENT Symptoms (Recalled from RN notes): No Resp Symptoms (Recalled from RN notes): Yes Skin Symptoms (Recalled from RN notes): No MS Symptoms (Recalled from RN notes): No Functional Status (Recalled from RN notes): wnl - History of Present Illness Provider Complaint: for the past week he has had worsening sinus and chest congestion. - Related Data Home Medications Medication Instructions Recorded Confirmed lisinopriL [Prinivil 10mg Tablet] 10 mg PO DAILY 05/05/20 09/18/21 Previous Rx's Medication Instructions Recorded Ondansetron [Zofran 4mg ODT] 4 mg PO Q8HP PRN #20 tab 10/13/21 Albuterol Sulfate [Albuterol 2 puffs IH Q6HP PRN 30 Days #1 each 01/30/22 Sulfate Hfa] Benzonatate [Benzonatate 100mg 100 mg PO TIDP PRN #30 cap 01/30/22 cap] Cefdinir [Omnicef 300mg Capsule] 300 mg PO BID #20 cap 01/30/22 methylPREDNISolone [Medrol] 4 mg PO DIRECTED 6 Days #21 01/30/22 packet Allergies Allergy/AdvReac Type Severity Reaction Status Date / Time Penicillins Allergy Verified 01/30/22 17:18 - Worker's Comp Is this a Worker's Comp case?: No [facility] History - Hepatitis A Screen Attestation statement:: This patient has been screened for Hepatitis A risk factors. I have reviewed the patient's past medical hist
[2022-01-30 17:48] VITALS: BP 139/92; PULSE 61; RESP 17; TEMP 36.8
== END 2022-01-30 17:51 | disposition home or self-care (01) ==
PROVIDERS: Emergency Provider Nurse Practitioner Family; PCP Emergency Medicine
DX: J20.9 Acute bronchitis, unspecified (principal)
CPT/HCPCS: 71046; 96372; 99212; C9803; G0463; J0696; U0003; U0005

== ENCOUNTER 2022-03-29 10:44 | Emergency (ER) | payer BC, SELFPAY ==
[2022-03-29 12:45] VITALS: BP 148/83; PULSE 67; RESP 19; TEMP 36.6; O2SAT 99; BMI 41.5
--- NOTE | 2022-03-29 13:11 | EXP.UTC ---
Discharge Plan Disposition Patient Disposition: Home, Self-Care Condition: Good Prescriptions Prescriptions: New azithromycin [Zithromax Z-Jose Ramon] 250 mg tablet 250 mg PO DAILY 6 Days Qty: 6 0RF Rx Instructions: start on day 2 of therapy methylprednisolone [Medrol (Jose Ramon)] 4 mg tablets,dose pack 4 mg PO DAILY Qty: 21 0RF No Action lisinopril 10 MG tablet 10 mg PO DAILY ondansetron 4 MG tablet,disintegrating 4 mg PO Q8HP PRN (Reason: Nausea) Qty: 20 0RF benzonatate 100 MG capsule 100 mg PO TIDP PRN (Reason: Cough) Qty: 30 0RF methylprednisolone 4 MG tablets,dose pack 4 mg PO DIRECTED 6 Days Qty: 21 0RF albuterol sulfate 8.5 GM HFA aerosol inhaler 2 puffs IH Q6HP PRN (Reason: Shortness Of Breath) 30 Days Qty: 1 5RF cefdinir 300 MG capsule 300 mg PO BID Qty: 20 0RF Referrals Follow up/Referrals: Jaya Roberto MD [Primary Care Provider] - See instructions Clinical Impressions Clinical Impression: Sinusitis Stand Alone Forms Stand Alone Forms: Work/School Release Instructions Patient Instructions: DI for Sinusitis, Sinusitis, Acute Bronchitis Discharge ED Provider: Deanna Montemayor [facility] General Stated complaint: Sore throat, cough, SOA, Covid exposure Mode of Arrival: Ambulatory Source of Information: Patient Limitations: No Limitations Time Seen by Provider: 03/29/22 13:12 Description of Symptoms (Recalled from Triage Doc. by RN): PATIENT C/O COUGH, SNEEZING, AND RUNNY NOSE X 1 WEEK HEENT Symptoms (Recalled from RN notes): Yes Resp Symptoms (Recalled from RN notes): Yes Skin Symptoms (Recalled from RN notes): No MS Symptoms (Recalled from RN notes): No Functional Status (Recalled from RN notes): WNL History of Present Illness Provider Complaint: Patient states that he has been sick for over a week States that he has been having sinus congestion and pressure, cough, sneezing and feeling like it is trying to move into his chest Related Data Home Medications Medication Instructions Recorded Confirmed lisinopril 10 mg tablet 10 mg PO DAILY High blood pressure 05/05/20 09/18/21 Previous Rx's Medication Instructions Recorded ondansetron 4 mg disintegrating 4 mg PO Q8HP PRN Nausea #20 tabs 10/13/21 tablet albuterol sulfate 90 mcg/actuation 2 puffs inhalation Q6HP PRN 01/30/22 aerosol inhaler Shortness Of Breath 30 days #1 ea benzonatate 100 mg capsule 100 mg PO TIDP PRN Cough #30 caps 01/30/22 cefdinir 300 mg capsule 300 mg PO BID #20 caps 01/30/22 methylprednisolone 4 mg tablets in 4 mg PO DIRECTED 6 days #21 01/30/22 a dose pack packets azithromycin 250 mg tablet 250 mg PO DAILY 6 days #6 tabs 03/29/22 (Zithromax Z-Jose Ramon) methylprednisolone 4 mg tablets in 4 mg PO DAILY #21 tabs 03/29/22 a dose pack (Medrol (Jose Ramon)) Allergies Allergy/AdvReac Type Severity Reaction Status Date / Time Penicillins Allergy Verified 01/30/22 17:18 Worker's Comp Is this a Worker's Comp case?: No [facility] Medical History (Updated 03/29/22 @ 13:15 by Deanna Montemayor APRN) Hypertension Social History (Updated 03/29/22 @ 12:57 by Fatuma Byrd RN) Smoking Status: Never smoker alcohol intake: never substance use type: denies use current occupational status: other Travel in the last 8 weeks: None household members: spouse housing: house current occupation: [employer] caffeine: Yes ROS Obtained: Yes All systems reviewed & no additional complaints except as documented and Yes Systems reviewed as appropriate & no additional complaints except as documented Constitutional Constitutional: Reports system reviewed and no additional complaints, except as documented, Reports as per HPI and Reports headache(s) ENT Ears, Nose, Mouth, and Throat: Reports system reviewed and no additional complaints, except as documented, Reports headache(s), Reports sinus pain, Reports sinus pressure and Reports sore throat Cardiovascul
[2022-03-29 13:17] VITALS: BP 148/83; PULSE 67; RESP 19; TEMP 36.6; O2SAT 99
[2022-03-29 13:19] LABS: Adenovirus,PCR Not Detected (NotDetected); Bordetella Pertussis Not Detected (NotDetected); Chlamydophila Pneumoniae, PCR Not Detected (NotDetected); Coronavirus 19, PCR Not Detected (NotDetected); Coronavirus 229E Not Detected (NotDetected); Coronavirus NL63 Not Detected (NotDetected); Coronavirus OC43 Not Detected (NotDetected); Coronovirus HKU1,PCR Not Detected (NotDetected); Human Metapneumovirus Not Detected (NotDetected); Influenza A, PCR Not Detected (NotDetected); Influenza AH1, 2009 Not Detected (NotDetected); Influenza AH1, PCR Not Detected (NotDetected); Influenza AH3,PCR Not Detected (NotDetected); Influenza B, PCR Not Detected (NotDetected); Mycoplasma Pneumoniae, PCR Not Detected (NotDetected); Parainfluenza 1, PCR Not Detected (NotDetected); Parainfluenza 2, PCR Not Detected (NotDetected); Parainfluenza 3, PCR Not Detected (NotDetected); Parainfluenza 4, PCR Not Detected (NotDetected); Respiratory Syncytial Virus Not Detected (NotDetected)
[2022-03-30 03:47] LABS: Rhinovirus/Enterovirus Detected (NotDetected)
== END 2022-03-29 13:28 | disposition home or self-care (01) ==
PROVIDERS: Emergency Provider Nurse Practitioner; PCP Emergency Medicine
DX: J01.90 Acute sinusitis, unspecified (principal); Z20.822 Contact with and (suspected) exposure to COVID-19
CPT/HCPCS: 87581; 87632; 87798; 99212; C9803; G0463; U0003; U0005

== ENCOUNTER 2022-06-21 11:54 | Emergency (ER) | payer BC, SELFPAY ==
[2022-06-21 14:15] VITALS: BP 0/0; PULSE 0; RESP 0; TEMP -17.7; TEMP 0
== END 2022-06-21 14:16 | disposition left against medical advice (07) ==
LOC: UTC 11:56
PROVIDERS: Emergency Provider Nurse Practitioner; PCP Emergency Medicine
DX: Z53.21 Procedure and treatment not carried out due to patient leaving prior to being seen by health care provider (principal)

== ENCOUNTER 2023-05-06 09:52 | Emergency (ER) | payer BC, SELFPAY ==
[2023-05-06 09:53] VITALS: BP 139/88; PULSE 97; RESP 19; TEMP 36.9; O2SAT 98; BMI 41.5
--- NOTE | 2023-05-06 10:35 | EXP.UTC ---
Discharge Plan Disposition Patient Disposition: Home, Self-Care Condition: Good Prescriptions Prescriptions: New ondansetron 4 mg Tablet,Disintegrating 4 mg PO Q8H PRN (Reason: Nausea) Qty: 12 0RF Referrals Follow up/Referrals: Jaya Roberto MD [Primary Care Provider] - See instructions Activity Restrictions/Add. Instructions Additional Instructions/Restrictions: Drink plenty of fluids. Water or gatorade would be best. Take tylenol or ibuprofen for pain or fever. Take the medications as directed. Follow up with your regular doctor. GO TO THE ER FOR ANY WORSENING SYMPTOMS Clinical Impressions Clinical Impression: Gastroenteritis Stand Alone Forms Stand Alone Forms: Work/School Release Instructions Patient Instructions: Viral Gastroenteritis, DI for Viral Gastroenteritis -- Adult, Ondansetron Discharge ED Provider: Leander Day [facility] General Stated complaint: vomiting, fever Time Seen by Provider: 05/06/23 10:35 History of Present Illness Provider Complaint: He states that for the past 2 days he has had n/v/d. He states that the last time he vomited was yesterday. He denies any abdominal pain. Related Data Previous Rx's Medication Instructions Recorded ondansetron 4 mg disintegrating 4 mg PO Q8H PRN Nausea #12 tabs 05/06/23 tablet Allergies Allergy/AdvReac Type Severity Reaction Status Date / Time Penicillins Allergy Verified 05/06/23 10:37 [facility] Disclaimer: The information contained in this section may have been updated after the patient was seen, as this information can be updated by other users. Medical History Hypertension Social History Smoking Status: Never smoker alcohol intake: never substance use type: denies use current occupational status: other Travel in the last 8 weeks: None household members: spouse housing: house current occupation: [employer] caffeine: Yes ROS Obtained: Yes All systems reviewed & no additional complaints except as documented Constitutional Constitutional: Denies chills, Denies fever(s) and Reports poor appetite ENT Ears, Nose, Mouth, and Throat: Denies dizziness and Denies sore throat Cardiovascular Cardiovascular: Denies dyspnea Respiratory Respiratory: Denies chest congestion, Denies cough and Denies dyspnea Gastrointestinal Gastrointestingal: Reports as per HPI, constipation, nausea and vomiting; Denies abdominal pain Musculoskeletal Musculoskeletal: Denies arthralgias Integumentary/Breasts Skin/Breast: Denies rash Neurologic Neurologic: Denies dizziness Physical Exam General General appearance: alert and in no apparent distress Head Head exam: atraumatic and normocephalic Eye Eye exam: Present normal appearance, PERRL and EOMI ENT ENT exam: Present normal exam, normal oropharynx, mucous membranes moist, TM's normal bilaterally and normal external ear exam Neck Neck exam: Present normal inspection, full ROM and trachea midline; Absent tenderness, meningismus or lymphadenopathy Chest Chest inspection: Present normal inspection and symmetric chest wall rise; Absent tenderness, rash or abscess Respiratory Respiratory exam: Present normal lung sounds bilaterally; Absent respiratory distress, wheezes or stridor Cardiovascular Cardiovascular exam: Present regular rate and normal rhythm; Absent irregular rhythm, systolic murmur, diastolic murmur or JVD Abdominal Exam Abdominal exam: Present soft and hyperactive bowel sounds; Absent distention, tenderness, guarding, rebound, rigidity, psoas sign, obturator sign, heel tap sign, Oreilly's sign, Rovsing's sign or tenderness at McBurney's Point Extremities Exam Extremities exam: Present normal inspection and full ROM; Absent tenderness Back Exam Back exam: Present normal inspection and full ROM; Absent tenderness, CVA tenderness (R) or CVA ten
[2023-05-06 10:57] LABS: UTC Influenza A Antigen Negative (Negative); UTC Influenza B Antigen Negative (Negative)
[2023-05-06 11:09] VITALS: BP 139/88; PULSE 97; RESP 18; TEMP 36.9; O2SAT 98
== END 2023-05-06 11:09 | disposition home or self-care (01) ==
PROVIDERS: Emergency Provider Nurse Practitioner Family; PCP Emergency Medicine
DX: A08.4 Viral intestinal infection, unspecified (principal); R50.9 Fever, unspecified; I10 Essential (primary) hypertension
CPT/HCPCS: 87804; 99212; 99214; G0463